=== PATIENT | female | born 1935 | race Caucasian/White ===

== ENCOUNTER → 2017-07-24 | Outpatient (CLI) | payer MEDICARE ==
[2017-07-24 12:49] LABS: EOS # 0.1 (0.04-0.40); EOS % 1.2 % (1.0-5.0); HEMATOCRIT 41.1 % (37.0-47.0); LYMPH# 2.1 (1.50-4.00); MEAN CELL VOLUME 90 fl (78-100); MEAN CORPUSCULAR HEMOGLOBIN 28 pg (27-31); MEAN CORPUSCULAR HGB CONC 32 g/dL (33-37); MEAN PLATELET VOLUME 10.5 fl (7.4-10.4); MONO # 0.8 (0.20-0.80); NEU # 6.6 (1.40-6.50); PLATELET COUNT 272 K/mm3 (130-400); RED BLOOD COUNT 4.57 M/mm3 (4.10-5.30); RED CELL DISTRIBUTION WIDTH 12.9 % (11.5-14.5); WHITE BLOOD COUNT 9.7 K/mm3 (4.8-10.8)
== END ==
LOC: RAD 11:55
PROVIDERS: Optometrist
DX: H05.20 Unspecified exophthalmos (principal); R22.0 Localized swelling, mass and lump, head
CPT/HCPCS: Q9967

== ENCOUNTER 2022-04-13 10:11 | Outpatient (RCR) | payer MEDICARE | END 2022-05-11 | disposition home or self-care (01) | LOC: PT | DX: M54.2 Cervicalgia (principal) | CPT/HCPCS: G0283-GP ==